=== PATIENT | male | born 1965 | race Caucasian/White ===

== ENCOUNTER 2021-07-02 17:52 | Inpatient (IN) | payer OTHER ==
--- NOTE | 2021-07-03 05:52 | NUR ---
PATIENT CAME INTO THE UNIT AT 0400 UNDER THE CARE OF . HE IS ADMITED TO RM 521A. AWAKE AND ABLE TO COMMUNICATE SOME NEEDS. HE AMBULATES AND CONTININET OF BOWEL AND BLADDER. LUNGS ARE CLEAR BS ACTIVE X4 QUADS. VITAL SIGN STABLE AT 123/72, 84,20,97.6,95% 16.2LBS. CALL TO [facility] AND [facility]. ADMIT MEDICATIONS ARE VERIFIED AND ORDERS ARE IN. NO SKIN ISSUES NOTES. BED IS LOW, LOCK AND ALARMED. HE IS EDUCATED AND THE FALL PACKEAGE. CONTINE CARE
[2021-07-03 07:06] LABS: CHOLESTEROL 118 mg/dL (<200); HDL CHOLESTEROL 34 mg/dL (>40); LDL CHOLESTEROL 65 mg/dL (<100); TC:HDL 3.5 Ratio (Not establshd); TRIGLYCERIDE 95 mg/dL (<150); VLDL 19 mg/dL (<40)
[2021-07-03 08:55] VITALS: BP 119/78
[2021-07-03 10:26] VITALS: BP 119/78
--- NOTE | 2021-07-03 13:12 | NUR ---
Admit to [facility] due to bipolar, with manic behaviors. Pt presents well nourished, no wt loss, and ate 90% of first meal of regular diet. Presents low nutrition risk
--- NOTE | 2021-07-03 17:00 | NUR ---
Assumed pt care from overnight shift this am. Pt presented anxious but appropriate at this time, and was AO x3, stating that he knew that he was in the hospital but that he felt like he was constantly confused and couldn't not get a hold of situation per pt report. Pt stated that he was not having any depression, but did voice mild anxiety from new environment at this time. Pt denied hallucinations when asked. Pt also denied pain at this time. Pt denied si/hi, stating that he was doing well. Pt lung sounds clear. Bowel sounds active. Last BM 07/02/21. During morning medication pass, pt was oriented to his environment several times, and pt was assured that he was in a safe space. Pt was worried that he "was in trouble" but was calmer when it was explained to him that he could go to his room and activity area ab tisha. Pt encouraged to use walker at this time as precaution due to orientation. Pt declined at this time. Pt given all morning medication and well tolerated. Participated in groups with peers. No further concerns at this time.
[2021-07-03 19:18] VITALS: BP 138/66
[2021-07-03 19:35] VITALS: BP 138/66
--- NOTE | 2021-07-03 21:39 | H ---
[facility] [place] [address] [place] [address] HISTORY AND PHYSICAL Name: IAN MENDIETA Room #: 521A-A ADM IN M.R.#: [id number] Admission: 07/03/21 Attend Phys: Jacques Diaz DO Discharge: Date of : 67 Report #: [id number] THIS REPORT FOR: cc: Physician not on staff Physician not on staff Jacques Diaz DO ~ DATE OF SERVICE: 07/03/2021 INPATIENT PSYCHIATRIC EVALUATION Of note, today is his 56th birthday. SOURCES OF INFORMATION: Records from [facility] in [place], [place]; interview with the patient; [facility] chart review here at [facility]. CHIEF COMPLAINT: "I don't know what happened to my stuff." ATTENDING PSYCHIATRIST: Jacques Diaz DO MEDICAL CODING MANAGER: Chase Pitt MD HISTORY OF PRESENT ILLNESS: A 56-year-old male, weighing in at 72.665 kilograms, transferred from [facility] yesterday. There are limited records from the folks at [place]. What I was able to discern was that the patient presented there at [facility], manic, paranoid, hyperverbal, altered mental status, delusional, flight of ideas, agitation, happens once every 10 years. He reports previously being hospitalized in [place], [place] and in [place], [place], for this. Per their [place] notes, he comes in for psychiatric disturbance; denied suicidal or homicidal ideation; currently manic, not making a lot of sense, paranoid, unable to provide any useful information. ALLERGIES: PENICILLIN. The physical exam at [facility] was pretty normal. LABORATORY DATA: H and H 16.6 and 47.2, white count 12.5, platelet count 395. Sodium 140, potassium 3.9, chloride 102, bicarbonate 27, BUN 13, creatinine 1.0. These were all [facility]'s labs. Carbon dioxide 27, anion gap 14, BUN 13, creatinine 1.0, random glucose 104. Calcium 9.5, corrected calcium 9.3. Total bilirubin 0.4, AST 19, ALT 31, alkaline phosphatase 83. Total protein 7.7, albumin 4.2. ANC was high at 8.0. Influenza A and B negative. SARS-CoV-2 antigen negative. He did have PCR here at [place] for COVID, which was negative. Seen by Dr. Meyer and Dr. Krause, through the ER physicians over at [address] [address] HISTORY AND PHYSICAL Name: IAN MENDIETA Room #: 52-A ADM IN M.R.#: [id number] Admission: 07/03/21 Attend Phys: Jacques Diaz, Discharge: Date of : 67 Report #: [id number] [facility]. There was what looks like [facility] psych assessment done and then he had a brief narrative there. I will attempt to read. A 55 now 56-year-old brought in by EMS to ED after a neighbor called because of manic behaviors. Nurses report the patient was very belligerent when he first came to the ED. During assessment, the patient was cooperative, but disorganized, hyperverbal, at times making nonsensical statements. 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 He was also very stuck on the idea that he was in trouble with the law. Signal Maintenance Technician asked what he meant. He stated "they may charge me for felony and child abuse." He was asked if he had any contact with his children and he stated no and that it is just "a hint I got." He also stated that he may be in trouble with the [employer]. Actually, made that statement to me today and that for years, people have been saying he is committing social security fraud. He also stated that things crashed when he switched from being [employer] to a Party. When I asked what evidence he has of these allegations, he stated that it is just a feeling that he has and stated, "I'm very paranoid." The patient rambled on about other things that did not make much sense. He was able to deny SI and HI. Unclear of substance use. He reported that his psychiatrist, as he did with me, is Dr. Melton at [facility], that is a female, so they referred him for inpatient psychiatric hospitalization. It looks like they gave him 5 mg of Haldol at [facility]. Here at [facility], venlafaxine 150 mg daily extended release is ordered. I have reduced it to 75. He is on Seroquel 300 mg at bedtime. I increased that up to 400 today. Also, he is on atorvastatin 40 mg at bedtime. I also felt he was manic enough to need a mood stabilizer, Depakote, I started that at 500 mg b.i.d. Potassium chloride is 20 mEq p.o. daily, lisinopril 10 mg p.o. daily, gabapentin 100 mg p.o. b.i.d. Otherwise, house PRNs. He is on triamterene/hydrochlorothiazide 37.5/25 p.o. daily for high blood pressure. Regarding the patient's psychiatric history, again every 10 years, hospitalizations at least twice before. He states his biological grandmother committed suicide and he was asked to clean up the mess. It sounds like it was by a gunshot wound. I did not get an exact year on that. He states he had a very disrupted maladaptive childhood, raising siblings. He was raised only by his mother and interestingly, his mother and father are still alive. He made comments that a stepmother his father when his father was 70, and she wants ill of him. Denies service. High school level of education, no college. States he has not been able to work in a long time. He reports actually working for [employer] in the past. Reports concussions from high school football. Denies seizure disorder. He has a 20- or 21-year-old adult son and he has no contact with. LABORATORY DATA: Labs here at [place], triglycerides 95, cholesterol 118, HDL 34. A1c appears to be pending. COVID-19 PCR is negative. [address] [address] HISTORY AND PHYSICAL Name: IAN MENDIETA Room #: 52-A ADM IN M.R.#: [id number] Admission: 07/03/21 Attend Phys: Jacques Diaz DO Discharge: Date of : 67 Report #: [id number] PHYSICAL EXAMINATION: VITAL SIGNS: Today, temperature 36.3, pulse 83, respirations 17, BP 119/78. GENERAL: Well-developed, healthy-appearing. MENTAL STATUS EXAMINATION: Well-developed, fair dressed appearing male. Attention limited. Concentration limited. Speech loud, pressured at times. Denied SI, HI. Endorsed hopelessness, helplessness. Mood and affect was expansive, histrionic at times. Memory not formally tested. Insight and judgment impaired. Fund of knowledge, no greater than average. He had mentioned ALLERGIES TO PENICILLIN. FORMULATION: A 56-year-old male, officially . Transferred from [facility] for an acute travis. PLAN: Admitted voluntarily to Geriatric Psychiatry. Evaluate, stabilize, obtain collateral. We will decrease venlafaxine XR from 150 to 75 mg daily due to manic potentiation, increase Seroquel XR from 300 to 400 as he is not naive to it, go ahead and start him on Depakote DR 500 mg twice a day. We will see how these measures go for the next several days. The patient believes he has been removed from social security benefits. Our marriage and family social worker will endeavor to find that out. It is unclear if he still has a case consultant, Katina, from [facility]. STRENGTHS: Insured with [place] [employer]. WEAKNESSES: Appears to have severe persistent mental illness, limited support. ESTIMATED LENGTH OF STAY: 10-14 days. Time spent on this case is at least 60 minutes, greater than 50% of the time was spent in review of records and coordination of care. He is a FULL CODE. <ELECTRONICALLY SIGNED> By: Jacques Daiz DO 07/03/21 [id number] [id number] Jacques Diaz DO /nt
[2021-07-04 01:06] LABS: GLYCOHEMOGLOBIN (HGB A1C) 5.9 % (4.8-5.6)
--- NOTE | 2021-07-04 03:44 | NUR ---
PATINET CARE WAS RESUMED AT 1900. HE WAS AT THE [facility] AREA SOCILIZING WITH OTHER PATIENT. HE IS ABLE TO COMMUNICATE HIS CONCERNS. LUNGS ARE CLEAR BS ACTIVE X4 QUADS. HE DENIES PAINS/SI/AVH/HI. HE IS CONTINENT OF BOWEL AND BLADDER. HE TOOK HIS MEDS WHOLE. HE HAS A NONE SKID SOCKS ON. BED IS LOW AND LOCKED. [id number] CHECK IS ONGOING. CONTINUE CARE AND MONITOR
[2021-07-04 09:55] VITALS: BP 137/84
--- NOTE | 2021-07-04 10:48 | NUR ---
Alert and orientated X4. Denies SI/HI. States he needs to back off and not be as participatory in group today. Slightly hyperverbal and delusional. 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 Breath sounds clear. Reg HR auscultated. Color pink with brisk capillary refill and palpable peripheral pulses. Independent with voiding. States he had BM yesterday. Active bowel sounds over soft, rounded abdomen. Reg, steady gait.
--- NOTE | 2021-07-04 18:04 | NUR ---
07/03/[address] Diaz met with the Pt. Pt presented manic and hyperverbal. Pt was oriented x4. Due to travis it was difficult to interview the Pt. However Pt was able to give some background information. Pt is and currently lives alone. Pt does recieve SSI disability, section 8, food stamps, and medicaid. Pt has 1 adult son, he has no contact with currently. Pt stated he was born in [place], [place] and grew up with a single parent. Pt reported raising his two younger brothers and expressed guilt about his relationship with his brothers. Pt reported both of his parents are still living. Pt did not have a DPOA at this time. Pt reported graduating high school. Pt reported marijuana use , stopped 6 years ago and had a relapse recently using eatables. Pt stated he recieved mental health services through [facility]. Dr. Melton is his psychiatrist and JAIR is Katina.
[2021-07-04 19:28] VITALS: BP 116/64
--- NOTE | 2021-07-05 04:04 | NUR ---
Assumed care of pt at 1900. Pt calm et cooperative this shift. Took medications whole without difficulty. Ambulates the halls ad tisha with steady gait. VSWNL. Health assessment with no abnormalities noted this shift. Socialized with peers in dayroom watching TV until HS. Denies SI/HI at present time. Currently resting in bed with eyes closed. Will continue to monitor per unit protocol.
[2021-07-05 08:52] VITALS: BP 115/72
[2021-07-05 11:14] VITALS: BP 115/72
--- NOTE | 2021-07-05 13:28 | NUR ---
RESUMMED CARE FROM OVERNIGHT SHIFT THIS AM, PATIENT IN DAY ROOM TALKING WITH OTHER PATIENTS. PATIENT ALERT ORIENTED TIMES 4 PATIENT ATE BREAKFAST TOOK MEDICATION WITHOUT INCIDENCE. PATIENT DENIES SI/HI/AH/VH AT PRESENT PATIENT; DENIES DEPRESSSION OR ANXIETY AT PRESENT. PATIENTS ABDOMEN SOFT BOWEL SOUNDS PRESENT PATIENTS LUNGS CLEAR. PATIENT PARTICPATING IN GROUPS PATIENT HAS NOT DISPLAYED ANY BEHAVIORS. WILL CONTINUE TO MONITOR PATIENT FOR SAFTEY AND BEHAVIORS.
[2021-07-05 19:44] VITALS: BP 118/72
--- NOTE | 2021-07-06 05:14 | NUR ---
Assumed care of pt at 1900. Pt calm et cooperative this shift. Took medications whole without difficulty. Ambulates the halls ad tisha with steady gait. Socialized with peers in dayroom watching TV until HS. VSWNL. Health assessment with no abnormalities noted this shift. Denies SI/HI at present time. Hyperreligious statements made to several peers during socialization this shift. Currently resting in bed with eyes closed. Will continue to monitor per unit protocol.
[2021-07-06 10:13] VITALS: BP 127/82
--- NOTE | 2021-07-06 12:33 | NUR ---
RESUMMED CARE FROM OVERNIGHT SHIFT THIS AM, PATIENT IN DAY ROOM TALKING WITH ANOTHER PATIENT. PATIENT ALERT ORIENTED TIMES 3 PATIENT DENIES SI/HI/AH/VH AT PRESENT. PATIENT ATE BREAKFAST TOOK MEDICATION WITHOUT INCIDENCE. PATIENTS ABDOMEN SOFT BOWEL SOUNDS PRESENT. PATIENTS LUNGS CLEAR PATIENT PARTICIPATED IN GROUPS. PATIENT PLEASANT INTERACTS APPROPRIATELY WITH OTHER PATIENTS. WILL CONTINUE TO MONITOR PATIENT FOR SAFETY AND BEHAVIORS.
--- NOTE | 2021-07-07 06:04 | NUR ---
Assumed care of pt at 1900. Pt calm et cooperative this shift. Took medications whole without difficulty. Ambulates the halls ad tisha with steady gait. VSWNL. Health assessment with no abnormalities noted at present time. Denies SI/HI at present time. Socialized with peers in dayroom watching TV until HS. Currently resting in bed with eyes closed. Will continue to monitor per unit protocol.
[2021-07-07 09:42] VITALS: BP 103/71
--- NOTE | 2021-07-07 16:59 | NUR ---
ATTENDING SCHEDULED GROUPS AND MEALS-SOCIAL WITH PEERS.FULL RANGE AFFECT NOTED. DOES NEED REMINDERS TO MAINTAIN BOUNDRIES WITH PEERS IS EXCESSIVLEY CARETAKING OF THEM. 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 DENIES ACUTE ANXIETY.DOES REPORT SOME DEPRESSIVE SYMPTOMS BUT STATES "I'VE HAD THEM MY WHOLE LIFE THEY ARN'T TOO BAD REALLY TODAY" DENIES SI/SH. NO PSYCHOSIS NOTED DURING BRIEF INTERACTION WITH THIS NURSE. JANESSA SHINE.
[2021-07-07 20:40] VITALS: BP 103/71
--- NOTE | 2021-07-08 00:06 | NUR ---
PATIENT HAS BEEN PLEASANT AND COOPERATIVE. HE SAT UP IN DINING ROOM VISITING WITH OTHER PATIENT'S WHILE WATCHING THE hint GAME [employer]. VOLTAREN GEL APPLIED TO HIS LEFT ROTATOR CUFF TEAR AREA FOR SOME PAIN RELIEF. PATIENT DENIES ANY OTHER PAIN. PATIENT DENIES SI/HI/AVH. PATIENT IS INDEPENDENT WITH CARES. PATIENT TOOK MEDS WITHOUT ISSUE. BED IN LOW POSITION. ROUTINE ROUNDS TO ASSESS SAFETY AND STATUS OF PATIENT.
[2021-07-08 06:28] VITALS: BP 98/51
[2021-07-08 12:36] VITALS: BP 118/80
--- NOTE | 2021-07-08 14:07 | NUR ---
RESUMMED CARE FROM OVERNIGHT SHIFT THIS AM, PATIENT IN DAY ROOM TALKING WITH A PATIENT. PATIENT ALERT ORIENTED TIMES 3 PATIENTS CONVERSATION IS SOMETIMES CONFUSING. PATIENT ATE BREAKFAST TOOK MEDICATION WITHOUT INCIDENCE. PATIENT DENIES SI/HI/AH/VH AT PRESENT. PATIENT HAS ANXIETY HE RATES A 6 NO DEPRESSION. PATIENTS ABDOMEN SOFT BOWEL SOUNDS PRESENT PATIENTS LUNGS CLEAR. PATIENTS CALM COOPERATIVE PATIENT PARTICPATES IN GROUPS HAS NOT DISPLAYED ANY BEHAVIORS. WILL CONTINUE TO MONITOR PATIENT FOR SAFETY AND BEHAVIORS.
--- NOTE | 2021-07-08 15:47 | NUR ---
Pt was observed conversing with peers in the day room. Pt shared during group that things he viewed as strengths others, in his past, told him those strength's were weaknesses. This thought drove a lot of the Pt's engagement in group therapy. Pt's affect appeared appropriate to context and the Pt's demeanor appeared active and courious.
[2021-07-08 19:52] VITALS: BP 119/67
[2021-07-08 20:43] VITALS: BP 119/67
--- NOTE | 2021-07-08 21:06 | NUR ---
RESUMMED CARE FROM DAY SHIFT THIS EVENING PATIENT IS IN DAY ROOM TALKING WITH OTHER PATIENTS. PATIENT ALERT ORIENTED TIMES 3 PATIENT DENIES SI/HI/AH/VH AT PRESENT. PATIENT STATES HIS ANXIETY IS A 2 AND NO DEPRESSION PATIENTS ABDOMEN SOFT. BOWEL SOUNDS PRESENT PATIENTS LUNGS CLEAR PATIENT TAKES MEDICATION WHOLE WITHOUT INCIDENCE. PATIENT HAS NOT DISPLAYED ANY BEHAVIORS WILL CONTINUE TO MONITOR PATIENT FOR SAFETY AND BEHAVIORS.
[2021-07-09 12:51] VITALS: BP 110/66
--- NOTE | 2021-07-09 13:47 | NUR ---
Resummed care of patient @0700: Patient was located in the dinning area, seated in a chair. No S/O acute distress noted. A&O*3 - some forgetfulness. Patient presents calm, cooperative, pleasent. Patient is very socialable with surrounding patients, and tends to intrude in other patients care. Denied SI/HI/AVH. Denied SOB, CP. Complaints of a chronic generalized pain /, denies wanting any time of medications for pain relief. BSP*4.NT.ND Lung sounds clear bilaterally. VSS on [employer]. C/O tinnitus in bilateral ears, states " It gets louder throughout the day, and just happens very randomly." Patient then stated to FLEXIBLE NANNY " It sounds like a bug in my ears." Patient is up ad-tisha, walks the unit regularly with other patients and socializing. Low-Fall precautions are in place. Will continue to monitior per [facility] protocol.
--- NOTE | 2021-07-09 16:53 | NUR ---
ANGEL met with the Pt concerning discharge. Pt expressed confusion about discharging. ANGEL provided direction on what discharge will look like. ANGEL also provided information on follow up appoinments and ensured the information would be provided in the discharge paperwork. ANGEL encouraged the Pt to reach out to his CM, Allyson Carlson. Pt stated he was familiar with Ms. Carlson and stated he would reach out. Discharge set for 07/10/2021 @ 1300. Pt will be transported via taxi. ANGEL did reach out the Allyson Carlson CM at [facility], concerning this discharge. ANGEL left a messge for a call back. As of this note no call recieved. Pt has a follow up psychiatric appointment with Dr. Rosalind Melton 07/22/2021 @ 1030am.
[2021-07-09 21:01] VITALS: BP 111/60
--- NOTE | 2021-07-09 22:18 | NUR ---
RESUMMED CARE FROM DAY SHIFT THIS EVENING PATIENT IN DAY ROOM TALKING WITH A PATIENT. PATIENT ALERT ORIENTED TIMES 3 PATIENT DENIES SI/HI/AH/VH AT PRESENT. PATIENT ASKED ME ABOUT WHEN HE DISCHARGES IF HE STILL NEEDS TO TAKE HIS MEDICATION. HE WAS WORRIED THAT HE WOULD NOT BE ABLE TO GET HIS MEDICATION. I TOLD PATIENT THAT DR MEJIA CALLS THE SCRIPTS TO HIS PHARMACY AND THAT HE DEFINITELY NEEDS TO TAKE HIS MEDICATION. PATIENTS ABDOMEN SOFT BOWEL SOUNDS PRESENT. PATIENTS LUNGS CLEAR PATIENT CALM COOPERATIVE HE IS VERY SOCIABLE; HE STATES HE WAS THANKFUL FOR STAFF CARING FOR HIM. WILL CONTINUE TO MONITOR PATIENT FOR SAFETY AND BEHAVIORS.
--- NOTE | 2021-07-10 01:24 | NUR ---
This RN assumed patient care at 0100. At this time pt was resting in bed calmly. Pt is low fall risk. Will continue to monitor.
[2021-07-10 09:02] VITALS: BP 109/59
[2021-07-10 10:11] VITALS: BP 109/59
[2021-07-10 11:51] VITALS: BP 109/59
[2021-07-10] MEDS ORDERED: LIPITOR40 MG PO (12:11)
[2021-07-10] MEDS ORDERED: LISINOPRIL10 MG PO (12:12)
[2021-07-10] MEDS ORDERED: NIASPAN 500 MG500 M1 PO (12:12)
[2021-07-10] MEDS ORDERED: DIVALPROEX SOD250 M3 PO (12:13)
[2021-07-10] MEDS ORDERED: EFFEXOR XR75 MG PO (12:14)
[2021-07-10] MEDS ORDERED: GABAPENTIN 100100 MG PO (12:14)
[2021-07-10] MEDS ORDERED: SEROQUEL XR400 M1 PO (12:15)
[2021-07-10] MEDS ORDERED: KLOR-CON M2020 MEQ PO (12:16)
[2021-07-10] MEDS ORDERED: TRIAMTERENE-HC1 EAC1 PO (12:16)
[2021-07-10] MEDS ORDERED: PT HOME MEDICATION MISCELL (12:16)
[2021-07-10 12:24] VITALS: BP 109/59
--- NOTE | 2021-07-10 16:14 | NUR ---
Assumed pt care this morning from overnight shift. Pt presented alert and oriented to self, and place at this time. Pt stated that he did not have any depression, though voiced anxiety at going home today. Pt denied hallucinations at this time. Pt also denied si/hi. Pain denied as well. Pt took all medication and tolerated well. Helped pt pack his belongings, and picked up pt's belongings from security and pharmacy for transport to home. Pt assisted with shower and hygiene needs before discharge. Pt presented with all personal items upon discharge- picked up by cab and taken to address on file @ 1300. No further concerns.
--- NOTE | 2021-07-11 20:13 | D ---
[facility] [place] [address] DISCHARGE SUMMARY Name: IAN MENDIETA Room #: 525B-B [facility] IN M.R.#: [id number] Admission: 07/03/21 Attend Phys: Jacques Diaz DO Discharge: 07/10/21 Date of : 67 Report #: [id number] THIS REPORT FOR: cc: Physician not on staff Physician not on staff Jacques Diaz DO ~ DATE OF SERVICE: 07/10/2021 INPATIENT DISCHARGE SUMMARY ATTENDING PSYCHIATRIST: Jacques Diaz DO VOLTAGE REGULATOR ASSEMBLER: Babar Ashley DO DISCHARGE DIAGNOSES: Bipolar 1 disorder, most recent episode manic, severe with psychotic features, much improved. Additional medical comorbidities include the patient has tinnitus. The patient is discharged to his home. ACTIVITY LEVEL: As tolerated. No alcohol, no illicit drugs. The patient is a nonsmoker. DIET: Regular. DISCHARGE MEDICATIONS: As follows: Atorvastatin 40 mg oral daily at bedtime for hyperlipidemia, nystatin 500 mg oral daily for hypertriglyceridemia, lisinopril 10 mg oral daily at 0900 hours for hypertension, Depakote sodium 750 mg oral twice daily for bipolar 1 disorder, gabapentin 100 mg oral twice daily for pain and possible neuropathy, venlafaxine extended release 75 mg oral daily, Seroquel XR 400 mg oral at bedtime for psychosis, potassium chloride 20 mEq oral daily for supplementation, triamterene/hydrochlorothiazide 37.5/25 mg oral daily as a diuretic. LABORATORY DATA: This admission are chemistry; A1c was 5.9, triglycerides 95, cholesterol 118, LDL 65, HDL 34. Depakote level on 07/08 was 38, it was increased from 500 to 750 b.i.d., but elected not to do a repeat level. SARS-CoV-2 PCR was negative on the , , and 10 July. The patient was given crisis suicide hotline information at time of discharge. REASON FOR ADMISSION: Back on 07/03 or so, a 56-year-old male sent out from [facility] for being manic, paranoid, hyperverbal, delusional. This happens about every 10 years. He has previously been hospitalized at [facility] in [place] and in [place], [place]. HOSPITAL COURSE: The patient was admitted to the Geriatric Psychiatry Unit. The patient was started on Depakote 500 mg twice a day for mood stabilization. He did have prominent psychotic features. I elected to go with Seroquel XR as [address] [address] DISCHARGE SUMMARY Name: IAN MENDIETA Room #: 525B-B DIS IN M.R.#: [id number] Admission: 07/03/21 Attend Phys: Jacques Diaz DO Discharge: 07/10/21 Date of : 67 Report #: [id number] patient actually takes it at home as well. I did increase the dose from 300 to 400 mg XR. The delusional state and travis rapidly resolved within the first couple of days of admission. The patient is apprehensive about returning home. It sounds like he has been on disability for sometime but wants to stay busy. He is really lacking day-to-day structure. I discussed whether he had a behavioral health case manager. It sounds like he has been a longtime patient of Dr. Melton at [facility], but does not have a behavioral health case manager. We discussed volunteering in [facility], [facility], hospital churches and things like that, which I think would be advantageous for him. The patient can usually only stay on task for a couple hours at a time, so I agree, I do not see employment is something he can likely to return to. On the day of discharge, the patient was not suicidal, homicidal, felt to be in stable condition for step-down. PHYSICAL EXAMINATION: VITAL SIGNS: On day of discharge, temperature 35.1, pulse 70, respirations 18, BP 109/50, O2 sat 98%. MUSCULOSKELETAL: Normal gait and station. MENTAL STATUS EXAMINATION: This is a well-developed, fair dressed male. Attention and concentration fair. Speech normal rate and tone. Thought process, linear and goal directed. Thought content, concerned about discharge. He was concerned as he was told that this may be shut off. We discussed coping strategies including contacting his landlord if this was the case. Mood and affect congruent, euthymic. Memory not formally tested. Insight and judgment fair to perhaps limited at times. Fund of knowledge below average overall. Prognosis for this patient is fair to guarded depending on his engagement with [facility]. Med compliant and making efforts to keep his life more structured and rewarded. Also, 30-day supply for scheduled medications were e-scribed to [facility] in [place], [place]. <ELECTRONICALLY SIGNED> By: Jacques Diaz DO 07/11/212012 29 48 Jacques Diaz DO /nt
== END 2021-07-10 13:00 | disposition home or self-care (01) | DRG 885 ==
LOC: SBH 17:52
PROVIDERS: Hospitalist; ADMIT Psychiatry & Neurology Psychiatry; ATTEND Psychiatry & Neurology Psychiatry
DX: F31.2 Bipolar disorder, current episode manic severe with psychotic features (principal); F29 Unspecified psychosis not due to a substance or known physiological condition; F43.20 Adjustment disorder, unspecified; M75.102 Unspecified rotator cuff tear or rupture of left shoulder, not specified as traumatic; I10 Essential (primary) hypertension; H93.19 Tinnitus, unspecified ear; R45.1 Restlessness and agitation; Z20.822 Contact with and (suspected) exposure to COVID-19; Z79.899 Other long term (current) drug therapy; Z88.0 Allergy status to penicillin; Y92.89 Other specified places as the place of occurrence of the external cause
CPT/HCPCS: 10880

== ENCOUNTER 2021-07-02 19:47 | Emergency (ER) | payer OTHER ==
[~2021-07-02] VITALS: Ht 172.7 cm; Wt 59.0 kg
--- NOTE | ~2021-07-02 | EMS ---
[facility] [address] [place] [address] EMS Patient Care Report Name: IAN MENDIETA Room #: DEP JOAQUINA Altamirano#: [id number] Admission: 07/02/21 Attend Phys: Discharge: 07/03/21 Date of : 67 Report #: [id number] THIS REPORT FOR: //name// Report Transmitted: 07/04/2021 07:31 EMS Care Summary [facility] [id number] @ 07/02/2021 17:16 Incident Location [address] [place] [address] Patient IAN MENDIETA Male, 55 Years 1965 Patient Address [address] [place] [id number] Patient History Behavioral/Psychiatric Disorder,Chronic Obstructive Pulmonary Disease (COPD),Bipolar II Disorder,Schizophrenia, Patient Allergies No known allergies, Patient Medications Gabapentin, Seroquel, Effexor, Chief Complaint Behavioral Issues Disposition Transported No Lights/[place] [facility] Reason Psychiatric Problem/Abnormal Behavior/Suicide Attempt Transported To [facility] Narrative Dispatched to [facility] ER for an interfacility transfer to [facility]. Patient is a 55 year old male that was brought to the ER by EMS the day prior in a manic state, telling ER staff someone poisoned him [facility] [address] [place] [address] EMS Patient Care Report Name: IAN MENDIETA Room #: DEP ER Adarsh#: [id number] Admission: 07/02/21 Attend Phys: Discharge: 07/03/21 Date of : 67 Report #: [id number] with a [place] [place]. He is being transferred to [facility] for behavior services not available at the sending facility. We placed him on our stretcher, secured with straps for transport. During the transport the patient showed signs of anxiety, nervousness, and paranoid. 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 This continued the entire trip and at one point thought I was there to arrest him. I kept reassuring him we were here to help him and after changing the conversation he calmed down. On arrival at [facility] we transferred him to their bed and gave a report along with documentation from [facility] to the receiving RN. Care was transferred. Initial Vitals @18:38P: 76,SpO2: 96, @18:43P: 74,SpO2: 96, @19:31BP: 121/80, @19:21P: 75,BP: 119/81,SpO2: 96, @18:34P: 80,SpO2: 98, @18:34P: 77,R: 20,BP: 129/84,GCS: 15,SpO2: 97,Revised Trauma: 12, Impression Mental disorder Timeline 17:04,Call Received 17:04,Psap Call 17:16,Dispatched 18:32,En Route 18:32,On Scene 18:34,At Patient 18:34,BP: / M,PULSE: 80,RR: R,SPO2: 98 Ox,ETCO2: ,BG: ,PAIN: ,GCS: , 18:34,BP: 129/84 M,PULSE: 77,RR: 20 R,SPO2: 97 Ox,ETCO2: ,BG: ,PAIN: ,GCS: 15, 18:38,Depart Scene 18:38,BP: / M,PULSE: 76,RR: R,SPO2: 96 Ox,ETCO2: ,BG: ,PAIN: ,GCS: , 18:43,BP: / M,PULSE: 74,RR: R,SPO2: 96 Ox,ETCO2: ,BG: ,PAIN: ,GCS: , 19:21,BP: 119/81 M,PULSE: 75,RR: R,SPO2: 96 Ox,ETCO2: ,BG: ,PAIN: ,GCS: , 19:31,BP: 121/80 M,PULSE: ,RR: R,SPO2: Ox,ETCO2: ,BG: ,PAIN: ,GCS: , 19:39,At Destination 19:45,Transfer Patient 20:54,Call Closed 20:54,In District Disclaimer [address] [address] EMS Patient Care Report Name: IAN MENDIETA Room #: DEP Adarsh#: [id number] Admission: 07/02/21 Attend Phys: Discharge: 07/03/21 Date of : 67 Report #: [id number] v1.1 Copyright 2021 [employer] This EMS Care Summary contains data elements from the applicable legal record (which may be displayed differently). It is designed to provide pertinent information for the following purposes: continuity of care, clinical quality, and state data reporting. The complete legal record is available to ED staff and administrators of the receiving hospital in [facility]s Patient Tracker. All data is provided "as is."
[2021-07-03 04:34] VITALS: BP 133/83
== END 2021-07-03 03:35 ==
LOC: ER 19:47
PROVIDERS: Emergency Medicine
DX: Z00.8 Encounter for other general examination (principal); Z20.822 Contact with and (suspected) exposure to COVID-19; Z88.0 Allergy status to penicillin